=== PATIENT | female | born 1965 | race Caucasian/White ===

== ENCOUNTER 2017-02-17 11:11 | Emergency (ER) | payer BC ==
[2017-02-17 12:10] VITALS: BP 128/71
[2017-02-17] MEDS ORDERED: Tetan/Diph/Pertus SYR(Tdap)* 0.5 ML SYR(BOOSTRIX) use SYR IM ONE (12:26)
--- NOTE | 2017-02-17 12:26 | UC ---
Laceration HPI - HPI Summary HPI Summary: 51 y/o female presents to the urgent care c/o laceration of LF thumb s/p slicing an apple with a knife at 1015am today. Pt states she cleaned the wound with water, and bleeding stopped with pressure. Pain is 2/10 w/ movement. Denies numbness and tingling over the thumb or hand. She can move the Thumb w/o any difficulty. Last Tetanus shot was in 2004. Pt denies fever, chest pain, SOB , N/V/D - History Of Current Complaint Chief Complaint: UCLaceration Stated Complaint: LEFT THUMB LAC Time Seen by Provider: 02/17/17 12:24 Hx Obtained From: Patient Laceration Location: Finger - LF thumb Mechanism Of Injury: Sharp Trauma Onset/Duration: Sudden Onset, Lasting Hours, Still Present Severity: Moderate Pain Intensity: 5 Pain Scale Used: 0-10 Numeric Aggravating Factors: Other: - touch Related History: Dominant Hand Right - Allergies/Home Medications Allergies/Adverse Reactions: Allergies Allergy/AdvReac Type Severity Reaction Status Date / Time No Known Allergies Allergy Verified 02/17/17 12:04 PMH/Surg Hx/FS Hx/Imm Hx Previously Healthy: Yes - Pt denies PMHX - Surgical History Surgical History: Yes Surgery Procedure, Year, and Place: GASTRIC BYPASS 04/11/2014 AT [facility]. RIGHT CARPAL TUNNEL 02/2013. LEFT CARPAL TUNNEL, 2011, [facility]. MICHELL SHOULDERS, 2011, [facility]. GALLBLADDER 1995, [facility]. HYSTERECTOMY, 2012, [facility]. T/A 1970 , [facility]. FOLOPIAN TUBES REMOVED, 1999, [facility]. LIPOMA FROM LEFT HIP , 1996, [facility] - Family History Known Family History: Positive: None - Pt denies FMHX - Social History Occupation: Employed Full-time Lives: With Family Alcohol Use: None Substance Use Type: None Smoking Status (MU): Never Smoked Tobacco Have You Smoked in the Last Year: No - Immunization History Most Recent Influenza Vaccination: NONE 2016 Most Recent Tetanus Shot: 2004 Most Recent Pneumonia Vaccination: NONE Review of Systems Constitutional: Negative Skin: Other - Lf thumb laceration s/p slicing an apple with a knife Eyes: Negative ENT: Negative Respiratory: Negative Cardiovascular: Negative Gastrointestinal: Negative Genitourinary: Negative Motor: Negative Neurovascular: Negative Musculoskeletal: Negative Neurological: Negative Psychological: Negative Is Patient Immunocompromised?: No All Other Systems Reviewed And Are Negative: Yes Physical Exam Triage Information Reviewed: Yes Appearance: Well-Appearing, No Pain Distress, Well-Nourished, Obese Vital Signs: Initial Vital Signs Temp 97.5 F 02/17/17 12:05 Pulse 58 02/17/17 12:05 Resp 16 02/17/17 12:05 BP 128/71 02/17/17 12:05 Pulse Ox 100 02/17/17 12:05 Vital Signs Reviewed: Yes Eyes: Positive: Conjunctiva Clear - PERRLA, EOMI, ENT: Positive: Normal ENT inspection, Hearing grossly normal, Pharynx normal, TMs normal Neck: Positive: Supple, Nontender, No Lymphadenopathy Respiratory: Positive: Chest non-tender, Lungs clear, Normal breath sounds, No respiratory distress Cardiovascular: Positive: RRR, No Murmur, Pulses Normal, Brisk Capillary Refill Abdomen Description: Positive: Nontender, No Organomegaly, Soft. Negative: CVA Tenderness (R), CVA Tenderness (L) Bowel Sounds: Positive: Present Musculoskeletal: Positive: Strength Intact, ROM Intact, No Edema Neurological Exam: Normal Psychological Exam: Normal Skin: Positive: significant lesion(s) - LF #1 phalanx with superficial laceration in the ventral sdie of sital phalans, in semilunar shape, about 1 cm in size. bleeding stopped, FROM of thumb, senstion intact, mild tenderness to palaption , no swelling observed. pulses WNL, reflexes WNL Laceration Repair - Laceration Repair 1 Description: Irregular - semilunar in shape Laceration Size After Repair: Length (cm) - 1cm Modified For Repair: No Type Injection: Local Anesthesia Used: 1.0% Lido - 2ml Cleansing Completed Via Routine Prep: Yes Irrigation With Pressure Irrigation Device: Yes Closure Material: Sutures - 3 Closure Method: Single Layer Suture Of: Skin Suture Type: Nylon - 5.0 Laceration Course/Dx - Course/Dx Course Of Treatment: 51 y/o female presents to the urgent care c/o laceration of LF thumb s/p slicing an apple with a knife at 1015am today. Pt states she cleaned the wound with water, and bleeding stopped with pressure. Pain is 2/10 w / movement. Denies numbness and tingling over the thumb or hand. She can move the Thumb w/o any difficulty. Last Tetanus shot was in 2004. Pt denies fever, chest pain, SOB, N/V/D. Hx obtained. LF #1 distal phalanx with a superfical laceration on the ventral side on examination. LACERATION PROCEDURE NOTE: . Copious irrigation was done with saline by the nurse and the wound explored. There was no FB or deep structure injury noted. FROM of left thumb. procedure was explained and consent obtained, Timeout performed. The wound was anesthetized with 2 mL of 2% lido with good anesthesia. Sterile drape and prep were don. There were 3 sutures with 5.0 nylon type of suture. The length of the wound after closure was 1.0cm. No debridement done. Wound was covered bacitracin with sterile tube dressing appied by nurse. The Pt tolerated the procedure well without adverse effects. Neurovascular intact and FROM. Tdap ordered and applied by nurse. Pt advised to f/u suture removal in 10 days and if any signs of infection develop to immediately return to the urgent care of PCP for further management and treatment. Pt understood and agreed and left the clinic ambulating A&Ox3. - Differential Dx - Laceration/Wound Differental Diagnoses: Abrasion, Avulsion, Laceration, Puncture Wound, Tendon Laceration Provider Diagnoses: 1- superficial laceration of the left #1 phalanx Discharge - Discharge Plan Condition: Stable Disposition: HOME Prescriptions: Bacitracin OINTMENT* 1 applic TOPICAL TID #1 tube Patient Education Materials: Care For Your Stitches (ED), Laceration (ED) Referrals: [facility] PHYSICIAN REFERRAL [Outside] No Primary Care Phys,NOPCP [Medical Doctor] - Additional Instructions: 1-Please apply topical antibiotic over the wound. Keep wound clean and dry 3- F/u suture removal in 10 days w/ your PCP or here at the urgent care. 4-Take Ibuprofen or Tylenol PO q6-8hrs prn for pain or swelling. 5- If you develop fever or redness around your finger despite the antibiotic please go to the ER immediately or return to the Urgent care.
[2017-02-17] MEDS ORDERED: Lidocaine 1% MPF* 2 ML VIAL INJ ONE (12:33)
== END 2017-02-17 13:25 | disposition home or self-care (01) ==
LOC: UCCORT 11:11
DX: S61.012A Laceration without foreign body of left thumb without damage to nail, initial encounter (principal); W26.0XXA Contact with knife, initial encounter; Y93.9 Activity, unspecified; Y92.9 Unspecified place or not applicable; Y99.9 Unspecified external cause status
CPT/HCPCS: 12001; 90471; 90715; 99212; G0463

== ENCOUNTER 2017-02-27 09:57 | Emergency (ER) | payer BC ==
[2017-02-27 10:42] VITALS: BP 116/62
--- NOTE | 2017-02-27 11:02 | UC ---
Skin Complaint HPI - HPI Summary HPI Summary: 51 yo female present for suture removal L thumb. Sutures placed 10 days ago here in [facility]. No problems reported. "I think it's healing up." No p/d/w. - History of Current Complaint Chief Complaint: UCGeneralIllness Time Seen by Provider: 02/27/17 10:40 Stated Complaint: SUTURE REMOVAL Hx Obtained From: Patient - Allergy/Home Medications Allergies/Adverse Reactions: Allergies Allergy/AdvReac Type Severity Reaction Status Date / Time No Known Allergies Allergy Verified 02/27/17 10:38 Review of Systems Constitutional: Negative Skin: Negative Eyes: Negative ENT: Negative Respiratory: Negative Cardiovascular: Negative Gastrointestinal: Negative Genitourinary: Negative Motor: Negative - see hpi Neurovascular: Negative Musculoskeletal: Negative - see hpi Neurological: Negative Psychological: Negative Is Patient Immunocompromised?: No All Other Systems Reviewed And Are Negative: Yes PMH/Surg Hx/FS Hx/Imm Hx Previously Healthy: Yes - Surgical History Surgical History: Yes Surgery Procedure, Year, and Place: GASTRIC BYPASS 04/11/2014 AT [facility] [place]. RIGHT CARPAL TUNNEL 02/2013. LEFT CARPAL TUNNEL, 2011, [facility] [place]. MICHELL SHOULDERS RTC REPAIR , 2011, [facility] [place]. GALLBLADDER 1995, [facility]. HYSTERECTOMY, 2012, [facility]. T/A 1970, [facility]. FOLOPIAN TUBES REMOVED, 1999, [facility]. LIPOMA FROM LEFT HIP, 1996, [facility] - Family History Known Family History: Positive: Diabetes - Social History Alcohol Use: None Substance Use Type: None Smoking Status (MU): Never Smoked Tobacco Have You Smoked in the Last Year: No - Immunization History Most Recent Influenza Vaccination: NONE 2016 Most Recent Tetanus Shot: 2004 Most Recent Pneumonia Vaccination: NONE Physical Exam Triage Information Reviewed: Yes Appearance: Well-Nourished Vital Signs: Initial Vital Signs Temp 97.9 F 02/27/17 10:39 Pulse 58 02/27/17 10:39 Resp 16 02/27/17 10:39 BP 116/62 02/27/17 10:39 Pulse Ox 100 02/27/17 10:39 Vital Signs Reviewed: Yes Eye Exam: Normal ENT Exam: Normal Respiratory Exam: Normal - no tachypnea, no dypsnea Cardiovascular Exam: Normal - normal heart rate, good cap refill Abdominal Exam: Normal Musculoskeletal Exam: Normal Neurological Exam: Normal Psychological Exam: Normal Skin Exam: Other - left thumb volar pad with 3 single interrupted sutures, wound is dry, a little cracked. No evidence infection or cellulitis. Distal sens LT present. FROM. CR good. Course/Dx - Course Course Of Treatment: sutures removed by myself. Steristrips applied, reviewed with pt. Will come off (or she can remove) in approx 3 days. F/u PCP, routine. Questions as posed answered to the best of my ability. Tet utd per pt. - Diagnoses Provider Diagnoses: suture removal Discharge - Discharge Plan Condition: Stable Disposition: HOME Patient Education Materials: Stitches Removal (ED) Referrals: Yannick Hernandes MD [Primary Care Provider] -
== END 2017-02-27 11:05 | disposition home or self-care (01) ==
LOC: UCCORT 09:57
DX: Z48.02 Encounter for removal of sutures (principal)

== ENCOUNTER 2017-03-25 08:47 | Day surgery (SDC) | payer BC ==
[~2017-03-25 08:47] MED LIST: Buffered Lidocaine 0.9% SYRIN* 5 ML/SYR SYRINGE INTRADERM ONE; Dexamethasone IV* 4 MG/ML 1 ML (4 MG) IV SLOW PU ONE; Famotidine IV* 10 MG/ML 2 ML (20 mg) IV ONE
[2017-03-25] MEDS ORDERED: Buffered Lidocaine 0.9% SYRIN* 5 ML/SYR SYRINGE ONE (08:54)
[2017-03-25] MEDS ORDERED: Dexamethasone IV* 4 MG/ML 1 ML (4 MG) ONE (08:54)
[2017-03-25] MEDS ORDERED: ceFAZolin 2 GM PREMIX (*) 2 GM/50 ML BAG IVPB ONE (08:54)
[2017-03-25] MEDS ORDERED: Famotidine IV* 10 MG/ML 2 ML (20 mg) ONE (08:54)
[2017-03-25] MEDS ORDERED: Ketorolac INJ* 30 MG/ML 1 ML VIAL ONE (10:54)
[2017-03-25] MEDS ORDERED: Propofol* 10 MG/ML 20 ML BTL IV PUSH ONE (10:54)
[2017-03-25] MEDS ORDERED: Midazolam* 1 MG/ML 5 ML VIAL (5 MG) ONE (10:54)
[2017-03-25] MEDS ORDERED: ROPIVACAINE 5 MG/ML 30 ML BTL (0.5%) ONE (10:54)
[2017-03-25] MEDS ORDERED: fentaNYL* 50 MCG/ML 2 ML VIAL (100 MCG VIAL) ONE (10:54)
[2017-03-25] MEDS ORDERED: Ondansetron INJ* 2 MG/ML VIAL ONE (10:54)
[2017-03-25] MEDS ORDERED: Scopolamine 1.5 mg* PATCH ONE (11:27)
[2017-03-25] MEDS ORDERED: Scopolamine PATCH Remove* 1 NOTE MISC PATCH OFF SCH (12:00)
[2017-03-25] MEDS ORDERED: Scopolamine 1.5 mg* PATCH TRANSDERM SCH (12:00)
[2017-03-25] MEDS ORDERED: Atropine 1MG/ML INJ* 1 ML VIAL ONE (12:13)
[2017-03-25] MEDS ORDERED: Glycopyrrolate IV* 0.2 MG/ML 1 ML VIAL ONE (12:13)
[2017-03-25] MEDS ORDERED: HYDROmorphone INJ* 1 MG/ML CARPUJECT SYRINGE IV PRN (12:25)
[2017-03-25] MEDS ORDERED: DiMENhydriNATE IV* 50 MG/ML VIAL IV PUSH PRN (12:25)
[2017-03-25] MEDS ORDERED: fentaNYL* 50 MCG/ML 2 ML VIAL (100 MCG VIAL) IV PRN (12:25)
[2017-03-25] MEDS ORDERED: oxyCODONE/Acetamin 5/325 MG* TAB PO PRN (12:25)
[2017-03-25] MEDS ORDERED: Ondansetron INJ* 2 MG/ML VIAL IV PRN (12:25)
[2017-03-25 16:52] VITALS: BP 111/64
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
== END 2017-03-25 15:25 | disposition home or self-care (01) ==
LOC: OR 08:47
PROVIDERS: ATTEND Orthopaedic Surgery
DX: M75.111 Incomplete rotator cuff tear or rupture of right shoulder, not specified as traumatic (principal); M75.21 Bicipital tendinitis, right shoulder; M75.41 Impingement syndrome of right shoulder; M25.511 Pain in right shoulder; M75.51 Bursitis of right shoulder; M19.011 Primary osteoarthritis, right shoulder; E66.9 Obesity, unspecified; G56.21 Lesion of ulnar nerve, right upper limb
CPT/HCPCS: A9270-GY; J0461; J0690; J1100; J1885; J2250; J2405; J2704; J2795; J3010

== ENCOUNTER 2017-10-06 06:31 | Day surgery (SDC) | payer MEDICARE, BC ==
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
[~2017-10-06 06:31] MED LIST changes: -Dexamethasone IV* 4 MG/ML 1 ML (4 MG) IV SLOW PU ONE; -Famotidine IV* 10 MG/ML 2 ML (20 mg) IV ONE
[2017-10-06] MEDS ORDERED: Lidocaine 1% INJ* 10 MG/ML 30 ML SDV ONE (07:21)
[2017-10-06] MEDS ORDERED: Ondansetron INJ* 2 MG/ML VIAL ONE (07:28)
[2017-10-06] MEDS ORDERED: fentaNYL* 50 MCG/ML 2 ML VIAL (100 MCG VIAL) ONE (07:28)
[2017-10-06] MEDS ORDERED: Midazolam* 1 MG/ML 5 ML VIAL (5 MG) ONE (07:28)
[2017-10-06] MEDS ORDERED: Propofol* 10 MG/ML 20 ML BTL IV PUSH ONE (07:28)
[2017-10-06] MEDS ORDERED: Ketorolac INJ* 30 MG/ML 1 ML VIAL ONE (07:28)
[2017-10-06] MEDS ORDERED: Lidocaine 2% PF * 5 ML VIAL ONE (07:28)
[2017-10-06] MEDS ORDERED: DiMENhydriNATE IV* 50 MG/ML VIAL IV PUSH PRN (08:00)
[2017-10-06] MEDS ORDERED: Acetaminophen TAB* 325 MG PO PRN (08:00)
[2017-10-06] MEDS ORDERED: Naloxone* 0.4 MG/ML 1 ML VIAL IV PRN (08:00)
[2017-10-06 08:18] VITALS: BP 110/68
--- NOTE | 2017-10-06 22:01 | OP ---
DATE OF OPERATION: 10/06/17 [facility] DATE OF : 69 SURGEON: Genet Miller MD RENTAL AGENT: ABIEL Rubio ANESTHESIA: Local MAC. PRE-OP DIAGNOSIS: Recurrent right carpal tunnel syndrome. POST-OP DIAGNOSIS: Recurrent right carpal tunnel syndrome. OPERATIVE PROCEDURE: Redo right carpal tunnel release. ESTIMATED BLOOD LOSS: Zero. TOURNIQUET TIME: About 10 minutes. INDICATIONS FOR PROCEDURE: Pamela is a 52-year-old female, who has carpal tunnel syndrome on the right hand. She had surgery and had relief, but symptoms have recurred and she presents now for redo right carpal tunnel release. DESCRIPTION OF PROCEDURE: The patient was brought to the operating room, was given a sedation anesthetic and a local infiltration of 10 cc of 1% plain lidocaine into the palm of her right hand. The skin of her right hand and forearm was prepped and draped in the usual sterile fashion. The hand and forearm were exsanguinated and the tourniquet elevated to 250 mmHg. The previous scar was incised and then extended proximally across the wrist flexion crease in zig-zag fashion, dissected sharply through the subcutaneous tissue down to the scar tissue of the transverse carpal ligament. This was divided completely and extended more proximal and distal. The nerve very enlarged and had some erythema surrounding it. The wound was irrigated and the skin edges were reapproximated with 4-0 nylon suture. The wound was dressed with Xeroform , 4x4, Webril, and an Sharath wrap. The patient tolerated the procedure well and was brought to the recovery room in good condition. [id number]/[facility] #: [id number] [facility]
== END 2017-10-06 08:25 | disposition home or self-care (01) ==
LOC: OREAST 06:31
PROVIDERS: ATTEND Orthopaedic Surgery
DX: G56.01 Carpal tunnel syndrome, right upper limb (principal); K21.9 Gastro-esophageal reflux disease without esophagitis
CPT/HCPCS: J1885; J2250; J2405; J2704; J3010

== ENCOUNTER 2017-11-10 06:32 | Day surgery (SDC) | payer MEDICARE, BC ==
--- NOTE | 2017-10-26 09:38 | HP ---
PREOPERATIVE HISTORY AND PHYSICAL: DATE OF SURGERY: 11/10/2017 [facility] CHIEF COMPLAINT: Numbness and tingling of the left hand. ATTENDING SURGEON: Genet Miller MD. PROCEDURE: Left carpal tunnel release. HISTORY OF PRESENT ILLNESS: Pamela is a 52-year-old female who had bilateral carpal tunnel release in the past. She has recurrent symptoms and has recently had a redo carpal tunnel release on the right. She presents now for the redo carpal tunnel release on the left. PAST MEDICAL HISTORY: Chronic pain. PAST SURGICAL HISTORY: 1. Bilateral carpal tunnel release in 2011 and a redo carpal tunnel release 2 weeks ago. 2. Left shoulder surgery. 3. Right shoulder surgery x2. 4. Hysterectomy. 5. Lipoma excision from the left hip. 6. Gastric bypass. 7. Cholecystectomy. 8. Tonsillectomy. 9. Achilles tendon repair on the right. CURRENT MEDICATIONS: 1. Gabapentin 300 mg 3 times a day. 2. Tizanidine HCL 2 mg p.o. p.r.n. spasms. 3. Oxycodone/acetaminophen 5/325 mg 1 to 2 p.o. q. 4 hours p.r.n. for pain. ALLERGIES: No known drug allergies. FAMILY HISTORY: Diabetes and cancer. SOCIAL HISTORY: She is disabled. She denies tobacco use, recreational drug use and denies alcohol use. REVIEW OF SYSTEMS: Negative for cephalic, cardiovascular, respiratory, gastrointestinal, genitourinary, or the musculoskeletal, skin, neurologic, endocrine and hematologic symptoms. Negative for history of MRSA, hepatitis C, and HIV. PHYSICAL EXAMINATION GENERAL: She is a healthy appearing well-developed female in no acute distress. VITAL SIGNS: She is 5 feet 3 inches. She weighs 240 pounds. Blood pressure is 128/80, respirations 16. HEENT: Unremarkable. She has good range of motion of her neck without pain. No masses are palpated. Her eyes movements are concentric. LUNGS: Clear to auscultation. Good inspiratory effort. No wheezing. CARDIAC: Regular rate and rhythm without murmur. NEUROLOGIC: She is alert and oriented without focal deficits. MUSCULOSKELETAL: She has positive Tinel sign of the median nerve at the left wrist. Well-healed surgical incision. IMPRESSION: Recurrent left carpal tunnel syndrome. PLAN: Left carpal tunnel release. We will see her back in followup in 10 days postop for suture removal. She will plan on using her pain medication Union that is prescribed by Dr. Hernandes for postop pain management. [id number]/[facility] #: [id number] KELSY
[~2017-11-10 06:32] MED LIST changes: +Dexamethasone IV* 4 MG/ML 1 ML (4 MG) IV SLOW PU ONE; +Dexamethasone IV* 4 MG/ML 1 ML (4 MG) ONE; +Famotidine IV* 10 MG/ML 2 ML (20 mg) IV ONE; +Famotidine IV* 10 MG/ML 2 ML (20 mg) ONE; +Ondansetron ODT TAB* 4 MG ONE; +Ondansetron TAB* 4 MG PO ONE
[2017-11-10] MEDS ORDERED: HYDROmorphone INJ* 0.5 MG/0.5 ML SYRINGE IV PRN (07:03)
[2017-11-10] MEDS ORDERED: fentaNYL* 50 MCG/ML 2 ML VIAL (100 MCG VIAL) IV PRN (07:03)
[2017-11-10] MEDS ORDERED: oxyCODONE TAB* 5 MG TAB PO PRN (07:03)
[2017-11-10] MEDS ORDERED: PROCHLORPERAZINE INJ 5 MG/ML 2 ML VIAL IV PRN (07:03)
[2017-11-10] MEDS ORDERED: Naloxone* 0.4 MG/ML 1 ML VIAL IV PRN (07:03)
[2017-11-10] MEDS ORDERED: HYDROcodone/ACETAMIN 5-325 MG* 1 TAB PO PRN (07:03)
[2017-11-10] MEDS ORDERED: Acetaminophen TAB* 325 MG PO PRN (07:03)
[2017-11-10] MEDS ORDERED: Ondansetron INJ* 2 MG/ML VIAL IV PRN (07:03)
[2017-11-10] MEDS ORDERED: fentaNYL* 50 MCG/ML 2 ML VIAL (100 MCG VIAL) ONE (07:07)
[2017-11-10] MEDS ORDERED: Midazolam* 1 MG/ML 2 ML VIAL (2 MG) ONE (07:07)
[2017-11-10] MEDS ORDERED: Lidocaine 2% PF * 5 ML VIAL ONE (07:08)
[2017-11-10] MEDS ORDERED: Propofol* 10 MG/ML 20 ML BTL IV PUSH ONE (07:08)
[2017-11-10] MEDS ORDERED: Ketorolac INJ* 30 MG/ML 1 ML VIAL ONE (07:09)
[2017-11-10] MEDS ORDERED: Lidocaine 1%* 5 ML VIAL ONE ×2 (07:13→07:31)
[2017-11-10 08:15] VITALS: BP 102/59
--- NOTE | 2017-11-10 21:27 | OP ---
DATE OF OPERATION: 11/10/17 [facility] DATE OF : 69 SURGEON: Genet Miller MD WATCH [employer]S INSPECTOR: ABIEL Rubio ANESTHESIA: Local MAC. PRE-OP DIAGNOSIS: Recurrent left carpal tunnel syndrome. POST-OP DIAGNOSIS: Recurrent left carpal tunnel syndrome. OPERATIVE PROCEDURE: Left carpal tunnel release. INDICATIONS: Pamela is a 52-year-old woman who has recurrent symptoms of carpal tunnel syndrome. These improved with injection of cortisone into the carpal tunnel. She presents for redo left carpal tunnel release. ESTIMATED BLOOD LOSS: Zero. DESCRIPTION OF PROCEDURE: The patient was brought to the operating room, was given a sedation anesthetic, and a local infiltration of 10 cc of 1% plain lidocaine in the palm of her left hand. The skin of her left hand and forearm was prepped and draped in the usual sterile fashion. The hand and forearm were exsanguinated and the tourniquet elevated to 250 mmHg. A longitudinal incision was made in the previous scar and dissected sharply through the subcutaneous tissue down to the transverse carpal ligament. The ligament was divided sharply with a knife and then more proximally with the scissors. There was some mild amount of scar tissue in the carpal tunnel and this was carefully dissected away from the median nerve, which showed evidence of moderate compression at the mid portion of the ligament. The wound was irrigated and the skin edges were reapproximated with 4-0 nylon suture. The wound was dressed with Xeroform, 4x4, Webril, and an Sharath wrap. The patient tolerated the procedure well, was brought to the recovery room in good condition. [id number]/[facility] #: [id number] MTDD
== END 2017-11-10 08:30 | disposition home or self-care (01) ==
LOC: OREAST 06:32
PROVIDERS: ATTEND Orthopaedic Surgery
DX: G56.02 Carpal tunnel syndrome, left upper limb (principal); Z68.41 Body mass index [BMI] 40.0-44.9, adult; K21.9 Gastro-esophageal reflux disease without esophagitis; D64.9 Anemia, unspecified; G89.29 Other chronic pain; M19.012 Primary osteoarthritis, left shoulder; M19.011 Primary osteoarthritis, right shoulder
CPT/HCPCS: A9270-GY; J1100; J1885; J2250; J2704; J3010